=== PATIENT | male | born 1975 | race Caucasian/White ===

== ENCOUNTER 2019-03-25 16:49 | Emergency (ER) | payer OTHER ==
[2019-03-25] MEDS ORDERED: cephALEXin 250 MG CAPSULE PO STA (17:23)
[2019-03-25] MEDS ORDERED: TETANUS/DIPHTHERIA/PERTUSSIS 0.5 ML SYRINGE IM ONE (17:23)
[2019-03-25] MEDS ORDERED: IBUPROFEN 800 MG TABLET PO STA (17:23)
--- NOTE | 2019-03-25 17:31 | ED Physician Documentation ---
History of Present Illness - Stated complaint Stated Complaint: RT KNEE INJURY - Chief complaint Chief Complaint: Ext Problem - History obtained from History obtained from: Patient, Family - History of Present Illness Timing: Today, How many hours ago (1) Pain level max: 3 Pain level now: 2 Improved by: rest Worsened by: walking - Additonal information Additional information: dismantling a wooden palette and tried to break a board on his knee. States a nail stuck in his knee and pulled it out with the board. last tetanus approx 7 years ago. Review of Systems Constitutional: denies: Fever, Chills GI: denies: Vomiting Skin: denies: Rash PD PAST MEDICAL HISTORY - Past Medical History Past Medical History: No - Past Surgical History Past Surgical History: No - Present Medications Home Medications: Ambulatory Orders Medication Instructions Recorded Confirmed Cephalexin [Keflex] 500 mg PO Q6H #40 capsule 03/25/19 Oxycodone HCl/Acetaminophen 1 - 2 each PO Q6H PRN #14 tablet 03/25/19 [Percocet 5-325 mg Tablet] - Allergies Allergies/Adverse Reactions: Allergies Allergy/AdvReac Type Severity Reaction Status Date / Time No Known Drug Allergies Allergy Verified 03/25/19 17:03 - Living Situation Living Situation: reports: With family Living Arrangement: reports: At home - Family History Family history: reports: Non contributory - Immunizations Immunizations are current?: Yes PD ED PE NORMAL - Vitals Vital signs reviewed: Yes - General General: Alert and oriented X 3, No acute distress - HEENT HEENT: Moist mucous membranes - Neck Neck: Supple, no meningeal sign - Derm Derm: Warm and dry - Extremities Extremities: Other (R knee - small puncture over the patella. Neurovascular intact. No swelling. No joint swelling.) - Neuro Neuro: Alert and oriented X 3 - Psych Psych: Normal mood, Normal affect Results - Vitals Vitals: Vital Signs - 24 hr 03/25/19 03/25/19 16:59 18:36 Temperature 36.2 C L Heart Rate 88 75 Respiratory 16 18 Rate Blood Pressure 148/97 H 180/93 H O2 Saturation 98 96 Oxygen O2 Source Room air - Rads (name of study) R knee xray Radiology: Prelim report reviewed, EMP read contemporaneously, See rad report (A 3 mm radiopaque density at the medial soft tissues of right knee. No acute displaced fracture or malalignment. ) PD MEDICAL DECISION MAKING - ED course Complexity details: reviewed results, re-evaluated patient, considered differential, d/w patient ED course: Small radiopaque density on x-ray. Unclear etiology. This is nowhere near the entry point. Likely represents an old fragment. No acute fracture or malalignment seen. Will place on antibiotics. This wound is unable to be irrigated. Will prescribe pain medication for home as well. Warnings of infection and instructions on wound care given at bedside. Patient counseled regarding signs and symptoms for which I believe and urgent re-evaluation would be necessary. Patient with good understanding of and agreement to plan and is comfortable going home at this time This document was made in part using voice recognition software. While efforts are made to proofread this document, sound alike and grammatical errors may occur. Departure - Departure Disposition: 01 Home, Self Care Clinical Impression: Puncture wound of lower extremity Qualifiers: Encounter type: initial encounter Laterality: right Qualified Code(s): S81.831A - Puncture wound without foreign body, right lower leg, initial encounter Condition: Good Instructions: ED Wound Puncture General Follow-Up: Oral Yanez DO [Primary Care Provider] - Within 3 Days (for wound check) Prescriptions: Cephalexin [Keflex] 500 mg PO Q6H #40 capsule Oxycodone HCl/Acetaminophen [Percocet 5-325 mg Tablet] 1 - 2 each PO Q6H PRN #14 tablet PRN Reason: pain Comments: Take all antibiotics until gone. Return if you worsen. Follow-up with your doctor for further evaluation. Return if you notice redness or drainage from the site. Do not drink alcohol or drive while on narcotic pain medicine. Note that many narcotic pain relievers also contain tylenol/acetaminophen. Please ensure that your total dose of acetaminophen from all sources does not exceed 3 grams (3000mg) per day. You may constipated on this medication, take a stool softener such as "Colace" twice a day while you are on it. Also recommend a [id number] laxative such as senna or MiraLAX any day that you do not have a bowel movement. If you received narcotic pain medication in the emergency department, do not drive or operate machinery for the next 24 hours. Discharge Date/Time: 03/25/19 18:36
--- NOTE | 2019-03-25 18:16 | XRAY Report ---
Reason: R knee vs nail, sunrise view please Procedure Date: 03/25/2019 Accession Number: [id number] / [id number] Procedure: XR - Knee 4 View RT CPT Code: Final Report FULL RESULT: EXAM: RIGHT KNEE RADIOGRAPHY EXAM DATE: 03/25/2019 05:59 PM. CLINICAL HISTORY: R knee vs nail, sunrise view please. COMPARISON: None. TECHNIQUE: 3 views. FINDINGS: Bones: Normal. No fractures or bone lesions. Joints: Normal. No effusion. No subluxations. Soft Tissues: A 3 mm radiopaque density at the medial soft tissues of right knee. No soft tissue swelling. IMPRESSION: A 3 mm radiopaque density at the medial soft tissues of right knee. No acute displaced fracture or malalignment. [facility]
[2019-03-25] MEDS ORDERED: oxyCODONE 5 MG TABLET PO STA (18:29)
[2019-03-25 18:37] VITALS: BP 180/93
== END 2019-03-25 18:36 | disposition home or self-care (01) ==
LOC: ED 16:49
DX: S81.031A Puncture wound without foreign body, right knee, initial encounter (principal); W45.0XXA Nail entering through skin, initial encounter; W22.8XXA Striking against or struck by other objects, initial encounter; Y93.89 Activity, other specified; Z23 Encounter for immunization
CPT/HCPCS: 73564; 90471; 90715; 99283; 99284; A9270